=== PATIENT | male | born 1940 | race Caucasian/White ===

== ENCOUNTER 2024-02-10 12:29 | Emergency (ER) | payer MEDICARE ==
[~2024-02-10] VITALS: Ht 188 cm; Wt 90.7 kg
[~2024-02-10 12:29] MED LIST: METF-379 PO
[2024-02-10 12:38] VITALS: BP_SYST 237; PULSE 85; RESP 18; TEMP 98.3; O2SAT 98
[2024-02-10 14:03] LABS: BASOPHILS % (AUTO) 0.5 % (0.0-2.0); EOSINOPHILS # (AUTO) 0.3 K/uL (0.0-0.4); EOSINOPHILS % (AUTO) 3.8 % (0.0-4.0); HEMATOCRIT 40.8 % (36-54); HEMOGLOBIN 13.8 g/dL (14.0-18.0); LYMPHOCYTES # (AUTO) 0.8 K/uL (1.0-5.5); LYMPHOCYTES % (AUTO) 9.6 % (20.5-51.5); MEAN CORPUSCULAR HEMOGLOBIN 31 pg (27-31); MEAN CORPUSCULAR HGB CONC 34 % (32-36); MEAN CORPUSCULAR VOLUME 91 fL (79.0-98.0); MONOCYTES # (AUTO) 0.7 K/uL (0.0-1.0); MONOCYTES % (AUTO) 9.1 % (1.7-9.3); NEUTROPHILS # (AUTO) 6.3 K/uL (1.8-7.7); PLATELET COUNT (AUTO) 185 K/uL (130-430); RED BLOOD CELL COUNT(AUTO) 4.48 MIL/uL (4.2-6.2); WHITE BLOOD COUNT (AUTO) 8.2 K/uL (4.8-10.8)
[2024-02-10 14:31] LABS: ANION GAP 6 (5-15); CALCIUM 8.8 mg/dL (8.4-11.0); CARBON DIOXIDE 29 mmol/L (23-29); CHLORIDE 108 mmol/L (98-107); GLUCOSE 108 mg/dL (74-106); POTASSIUM 4.3 mmol/L (3.5-5.1); SODIUM SERUM 143 mmol/L (136-145); UREA NITROGEN, BLOOD 27 mg/dL (8-21)
[2024-02-10] MEDS: HYDROcodone/ACETAMIN 10-325 MG TAB PO ONE (14:31)
[2024-02-10] MEDS: KETOROLAC TROMETHAMINE 60 MG/2 ML VIAL IM ONE (14:31)
[2024-02-10 14:45] LABS: ERYTHROCYTE SEDIMENTATION RATE 24 MM/HR (0-15)
[2024-02-10 15:23] LABS: BILIRUBIN,URINE NEGATIVE (NEGATIVE); BLOOD, URINE NEGATIVE (NEGATIVE); CLARITY/URINE CLEAR (CLEAR); COLOR,URINE YELLOW (YELLOW); GLUCOSE,URINE NEGATIVE (NEGATIVE); KETONES,URINE NEGATIVE (NEGATIVE); LEUKOCYTE ESTERASE ,URINE NEGATIVE (NEGATIVE); NITRITE, URINE NEGATIVE (NEGATIVE); PH,URINE 5.5 (5.0-8.0); PROTEIN URINE 3+ (NEGATIVE); UROBILINOGEN,URINE 0.2 (0.2-1.0)
[2024-02-10 15:36] LABS: BACTERIA,URINE RARE /HPF (None Seen); MUCUS,URINE None Seen /LPF (None Seen); RBC,URINE 0-3 /HPF (0-3); WBC,URINE 0-3 /HPF (0-3)
[2024-02-10] MEDS: hydrALAZINE HCL 20 MG/ML VIAL IVP ONE (16:22)
[2024-02-10] MEDS: MORPHINE 2 MG/ML INJ. SYRINGE IVP ONE (17:28)
[2024-02-10] MEDS ORDERED: NEU300 PO (17:51)
[2024-02-10] MEDS ORDERED: MOM PO (17:51)
[2024-02-10] MEDS ORDERED: CALC-1112 PO (17:51)
[2024-02-10] MEDS ORDERED: LOPE2CAP PO (17:51)
[2024-02-10] MEDS ORDERED: ASA81 PO (17:51)
[2024-02-10] MEDS ORDERED: METF-1069 PO (17:51)
[2024-02-10] MEDS ORDERED: ANT30 PO (17:51)
[2024-02-10] MEDS ORDERED: ACET325T PO (17:51)
[2024-02-10] MEDS ORDERED: CETI10CA11 PO (17:51)
[2024-02-10] MEDS ORDERED: ROSU40TA PO (17:51)
[2024-02-10] MEDS ORDERED: MIRT-91 PO (17:51)
[2024-02-10] MEDS ORDERED: HYG25 PO (17:51)
[2024-02-10] MEDS ORDERED: TAMS-11 PO (17:51)
[2024-02-10] MEDS ORDERED: LOSA100T24 PO (17:51)
[2024-02-10] MEDS ORDERED: TRAM50TA2 PO (17:51)
[2024-02-10] MEDS ORDERED: METO-442 PO (17:51)
[2024-02-10] MEDS ORDERED: LIDOINT TP (19:29)
[2024-02-10 20:45] VITALS: BP_SYST 188; PULSE 78; RESP 18; TEMP 98.1; O2SAT 96
== END 2024-02-10 20:45 | disposition home or self-care (01) ==
LOC: SED 12:29
DX: I16.0 Hypertensive urgency (principal); G89.29 Other chronic pain; M54.50 Low back pain, unspecified; R51.9 Headache, unspecified; I10 Essential (primary) hypertension; E11.9 Type 2 diabetes mellitus without complications; Z98.890 Other specified postprocedural states; Z79.84 Long term (current) use of oral hypoglycemic drugs; Z79.899 Other long term (current) drug therapy
CPT/HCPCS: 36415; 70450-TC; 72131; 80048; 81000; 81001; 81015; 84484; 85025; 85651; 93005; 96372; 96374; 96375; 99285; J0360; J1885; J2270